=== PATIENT | female | born 1950 | race Caucasian/White ===

== ENCOUNTER 2020-06-04 11:21 | Outpatient (CLI) | payer MEDICARE, SELFPAY ==
--- NOTE | 2020-06-04 | ECG_ITS ---
Measurements Intervals [place] Rate: 85 P: 68 OK: 170 QRS: -60 QRSD: 129 T: 37 QT: 390 QTc: 465 Interpretive Statements SINUS RHYTHM RIGHT BUNDLE BRANCH BLOCK LEFT ANTERIOR FASCICULAR BLOCK ABNORMAL ECG Electronically Signed On 06-04-2020 12:58:55 CDT by Storm Doyle D.O.
[2020-06-04 12:23] LABS: Albumin Level 4.3 g/dL (3.5-5.1); Estimated Glomerular Filt Rate > 60
== END 2020-06-04 11:22 | disposition home or self-care (01) ==
PROVIDERS: PCP Nurse Practitioner Family; Visit Provider Orthopaedic Surgery
DX: Z01.818 Encounter for other preprocedural examination (principal); M17.11 Unilateral primary osteoarthritis, right knee; R94.31 Abnormal electrocardiogram [ECG] [EKG]
CPT/HCPCS: 36415; 82040; 82565; 93005

== ENCOUNTER 2020-06-12 13:58 | Outpatient (CLI) | payer MEDICARE, SELFPAY ==
[2020-06-12 15:05] LABS: Basophils Absolute Auto 0.1 K/mm3 (0.0-0.1); Basophils Percent Auto 0.5 % (0.2-1.2); Eosinophils Absolute Auto 0.1 K/mm3 (0-0.3); Eosinophils Percent Auto 1.5 % (0-4.4); Hematocrit 45.4 % (37.0-47.0); Hemoglobin 15.2 g/dL (12.0-15.0); Immature Granulocyte Absolute 0.02 K/mm3 (0.00-0.031); Immature Granulocyte Percent A 0.2 % (0-0.5); Lymphocytes Absolute Auto 1.91 K/mm3 (0.9-3.2); Mean Corpuscular HGB Conc 33.5 g/dl (32-36); Mean Corpuscular Hemoglobin 30.8 pg (26-34); Mean Corpuscular Volume 92.1 fl (80-100); Mean Platelet Volume 9.3 fl (7.4-10.4); Monocytes Absolute Auto 0.7 K/mm3 (0.1-0.6); Monocytes Percent Auto 6.8 % (2.6-8.5); Neutrophils Absolute Auto 6.8 K/mm3 (1.3-6.7); Platelet Count Result 301 k/mm3 (150-375); Red Blood Count 4.93 M/mm3 (4.2-5.4); Red Cell Distribution Width 12.7 % (11.5-14.5); White Blood Count 9.6 K/mm3 (4.5-10.0)
[2020-06-12 15:13] LABS: Hemoglobin A1C 5.6 % (<5.7); Urine Cotinine NEGATIVE
[2020-06-12 15:19] LABS: Glucose 116 mg/dL (65-105)
== END 2020-06-12 13:59 | disposition home or self-care (01) ==
PROVIDERS: PCP Nurse Practitioner Family; Visit Provider Orthopaedic Surgery
DX: M17.0 Bilateral primary osteoarthritis of knee (principal)
CPT/HCPCS: 36415; 80307; 82947; 83036; 85025; 87081

== ENCOUNTER 2020-07-14 01:28 | Outpatient (CLI) | payer MEDICARE, SELFPAY ==
[2020-07-14 18:01] LABS: SARS-CoV-2 RNA PCR Negative
== END 2020-07-14 01:29 | disposition home or self-care (01) ==
LOC: ANHCOVIDDT 01:29
PROVIDERS: PCP Nurse Practitioner Family; Visit Provider Orthopaedic Surgery
DX: Z01.812 Encounter for preprocedural laboratory examination (principal); Z20.828 Contact with and (suspected) exposure to other viral communicable diseases
CPT/HCPCS: 87635; C9803; U0003

== ENCOUNTER 2020-07-17 02:38 | Day surgery (SDC) | payer MEDICARE, SELFPAY ==
[2020-06-12 14:19] VITALS: BP 166/78; PULSE 88; RESP 20; TEMP 37.1; O2SAT 97; BMI 28.4
--- NOTE | 2020-07-16 13:56 | WPDANESEPPF ---
Anes - Initial Pre Proc Eval Procedure: Operation Date: 07/17/20 11:00 Proposed Procedures p Right Total Knee Arthroplasty - George Montoya MD Date/Time: 07/16/20 13:56 Surgeon: George oMntoya MD Pre Op Diagnosis: Right Knee OA Patient Data Age: 69 Gender: F Height: 1.6 m Weight: 72.9 kg Last Vital Signs Temp 37.1 C 06/12/20 14:19 Pulse 88 06/12/20 14:19 Resp 20 06/12/20 14:19 BP 166/78 H 06/12/20 14:19 Pulse Ox 97 06/12/20 14:19 Allergies Allergy/AdvReac Type Severity Reaction Status Date / Time Sulfa (Sulfonamide Allergy Severe Hives / Verified 07/17/20 09:03 Antibiotics) Red Face latex Allergy Mild RASH Verified 07/17/20 09:03 neomycin Allergy Unknown Skin Verified 07/17/20 09:03 Reaction Penicillins AdvReac Mild RAPPID Verified 07/17/20 09:03 HEART RATE Home Medications Medication Instructions Recorded Confirmed Type cranberry 450 mg PO TID 06/12/20 07/17/20 History multivitamin 1 tablet PO DAILY 06/12/20 07/17/20 History Patient hx anesthesia problems: none Family hx anesthesia problems: none PMFSH Past Medical History Medical History (Updated 07/16/20 @ 13:57 by Jose Corea MD) Hidradenitis Osteoarthritis of both knees Overweight (BMI 25.0-29.9) Primary osteoarthritis of right hip Vertigo Surgical History Surgical History History of hemorrhoidectomy (~1972) History of total left hip arthroplasty (~09/20/19) Presence of left artificial hip joint (~09/20/19) Social History Social History Smoking status: Never smoker Alcohol intake: never Substance use: never Living arrangements: with family Spiritual care concerns: No Anes - Eval Final PreProcedure Day of Procedure 07/16/20 13:56 Patient weight: overweight Heart: regular rate and rhythm Lungs: clear to auscultation and normal air movement Airway: Mallampati scale class II Neurological: alert and oriented Last oral intake: >/= 8 hours ASA classification: II Emergent: no Anesthetic plan: proceed Anesthesia type and monitoring: general LMA Informed Consent: The patient's anesthetic plan and its attendant risks and benefits were discussed with the patient/family/POA. Questions were solicited and answers provided to the satisfaction of the patient/family/POA.
[2020-07-17] VITALS (12 sets, daily range): BP systolic 108–148; BP diastolic 45–77; PULSE 80–103; RESP 12–18; TEMP 36.2–37.4; O2SAT 92–99
--- NOTE | ~2020-07-17 | XR_ITS ---
EXAMINATION: XR knee RT 2V DATE: 07/17/2020 13:22 INDICATION: Right total knee arthroplasty. Postop. TECHNIQUE: 2 views of right knee were obtained. COMPARISON: Right knee radiographs 09/03/2015 FINDINGS: There is a total right knee arthroplasty without patellar resurfacing. Tibia demonstrates 1 0 degrees posterior angulation with respect to tibial component. Patellar osteophytes are noted. Ther e is gas in the knee joint and soft tissues, consistent with recent surgery. IMPRESSION: 1. New total right knee arthroplasty. Reviewed, dictated and finalized at location A.
--- NOTE | 2020-07-17 07:18 | WPDHPUPDATE1 ---
History and Physical Update Update Date/Time: 07/17/20 07:18 History and Physical has been reviewed, including an updated exam of the patient. There are NO changes in the patient's condition. Risks, benefits, and alternatives have been discussed and questions answered. Patient agrees to proceed with procedure.
[2020-07-17] MEDS: ACETAMINOPHEN 500 MG TABLET 1000 MG PO (09:07)
[2020-07-17] MEDS: LACTATED RINGERS 1,000 ML 30 ML IV CONT ×2 (09:23→13:10)
[2020-07-17] MEDS: KETOROLAC 15 MG/ML VIAL (*BKC) IV PUSH (09:25)
--- NOTE | 2020-07-17 09:50 | WPDANESPNB ---
Anes - Peripheral Nerve Block Date/Time: 07/17/20 09:50 I have discussed with the patient/family/POA the placement of a peripheral nerve block for post-operative pain management, including associated risks, benefits, complications, and side effects. Alternative methods of post-operative analgesia were detailed. Questions were solicited and answers provided to the satisfaction of the patient/family/POA. Time-Out: A pre-procedural Time-Out was completed immediately before starting the procedure and confirmed: Patient Identification, Site, Procedure, Patient Position and the Availability of Requisite Equipment. Clinical Indications: Acute post-operative pain management requested by the operative surgeon. Nerve Block Insertion Note Anes-nerve block: adductor canal right Patient position: supine Skin prep: chlorhexidine Needle: 22 gauge, stimulating, insulated echogenic needle. Needle length: 80 mm Technique: ultrasound Technique comment: in plane Injectate: bupivacaine 0.5% with epi 5 mcg/ml (30cc) Observations: tolerated well Complications: none Procedure start time:: 1100 Procedure end time:: 1110
[2020-07-17] MEDS: TRANEXAMIC ACID 1,000MG/ISO100 1,000 MG/100 ML BAG 200 MG IVPB (10:15)
[2020-07-17] MEDS: ceFAZolin 2 GM/D5W 50 ML 2 GM/50 ML BAG IVPB (11:27)
[2020-07-17] MEDS: GENTAMICIN BONE CEMENT REFOBACIN 1 EACH TOPICAL (12:38)
--- NOTE | 2020-07-17 13:32 | P.OP_ITS ---
Procedure Note - Detailed Date of procedure: 07/17/20 Pre-op diagnosis: Right Knee OA Post-op diagnosis: same Procedure performed: Total knee arthroplasty, right. Description of procedure: Severe patellofemoral arthritis. Also medial comp artment disease. Standard resections were taken. Femur was rotated to 2? external rotation based on gap measurement. Bone quality was fair. Patella was extremely thin; it was not possible to resurface. Implants: [place] [employer] size 4 cemented femur, size 4 cemented low-profile tibia, 9mm CR polyethylene insert Anesthesia: GETA and regional (subsartorial nerve block) Surgeon: George Montoya MD Estimated blood loss (mL): 200 Drains: No Complications: None Condition: stable Disposition: PACU Findings: OPERATIVE DETAILS: The patient was given a nerve block preoperatively, and then brought to the operating room. A general anesthetic was administered. The leg was prepped and draped in the usual sterile fashion. The limb was elevated and the tourniquet inflated to 300 mmHg during initial exposure, and cementation. A longitudinal incision was created along the medial border of the patella and patellar tendon, and a minimally invasive optimized mid-vastus approach to the knee was performed. A moderate medial release was taken. The knee was then flexed. The osteophytes were carefully removed. The intramedullary guide was placed in the femoral canal. The distal femoral resection was then taken with the oscillating saw. The collateral ligaments were carefully protected. The tibia was carefully exposed. The jig was applied, and the proximal tibia was resected according to preoperative plan. The pain really anesthetic mixture was injected into the periarticular tissues. The knee was balanced in extension, and appropriate releases were taken where needed. The anterior cruciate ligament and meniscal remnants were removed. The posterior cruciate ligament was preserved. The patella was markedly thin. Less than 10 mm at the lateral facet. Osteophytes were removed and a partial lateral facetectomy was performed. The remaining patella had a nice contour articulation with femur. Minimal lateral release was performed. The femur was sized and rotation assessed using a combination of gap balancing, posterior referencing, and the AP axis. The 4 in 1 cutting block was used to finish the femoral cuts after equal gaps were assured. The lug holes were drilled. The osteophytes were carefully removed from the back of the knee. The knee was copiously irrigated with anti biotic solution periodically throughout the procedure. The spacer block was used to confirm equal flexion and extension gaps. Further releases were performed as needed. The tibia was sized and broached. The bony surfaces were prepared for cementing with pulsatile lavage. The real tibial component and femoral components were cemented into position. Excess cement was carefully removed. The polyethylene insert was placed. The [place] Pelletss device was used during the procedure. The wound was closed with #1 Vicryl suture, #2 Quill suture, [id number] suture, and 2-0 Strata-fix suture followed by Steri-Strips. A sterile bulky dressing was applied. Meticulous hemostasis was maintained throughout the procedure. There were no complications. The patient was extubated and brought to the recovery room in stable condition after the application of sterile dressing with Dat bandage.
--- NOTE | 2020-07-17 14:22 | SUR.PHASEI ---
PT AWAKE AND ALERT. TALKATIVE. STATES MILD CRAMPING PAIN TO CALF, TOLERABLE. MEETS DISCHARGE CRITERIA. 1 BAG OF BELONGINGS SENT WITH PT
[2020-07-17] MEDS: diphenhydrAMINE HCl INJ 50 MG/ML VIAL 25 MG IV PUSH (18:17)
[2020-07-17] MEDS: DOCUSATE SODIUM 100 MG CAPSULE PO (18:17)
[2020-07-18 00:15] VITALS: BP 118/54; PULSE 77; RESP 12; TEMP 37; O2SAT 96
[2020-07-18 05:07] LABS: Basophils Percent Auto 0.2 % (0.2-1.2); Eosinophils Percent Auto 0.1 % (0-4.4); Hematocrit 38.1 % (37.0-47.0); Hemoglobin 12.8 g/dL (12.0-15.0); Immature Granulocyte Absolute 0.05 K/mm3 (0.00-0.031); Immature Granulocyte Percent A 0.3 % (0-0.5); Lymphocytes Absolute Auto 1.61 K/mm3 (0.9-3.2); Lymphocytes Percent Auto 10.9 % (18.3-44.2); Mean Corpuscular HGB Conc 33.6 g/dl (32-36); Mean Corpuscular Hemoglobin 30.7 pg (26-34); Mean Corpuscular Volume 91.4 fl (80-100); Monocytes Absolute Auto 0.9 K/mm3 (0.1-0.6); Monocytes Percent Auto 6.2 % (2.6-8.5); Neutrophils Absolute Auto 12.1 K/mm3 (1.3-6.7); Neutrophils Percent Auto 82.3 % (45.5-73.1); Platelet Count Result 276 k/mm3 (150-375); Red Blood Count 4.17 M/mm3 (4.2-5.4); Red Cell Distribution Width 12.4 % (11.5-14.5); White Blood Count 14.8 K/mm3 (4.5-10.0)
[2020-07-18 06:00] VITALS: BP 125/62; PULSE 73; RESP 16; TEMP 36.6; O2SAT 97
[2020-07-18 06:02] LABS: Anion Gap 7 mmol/L (8-16); Blood Urea Nitrogen 11 mg/dL (7-17); Calcium 8.6 mg/dL (8.4-10.2); Carbon Dioxide 25 mmol/L (22-30); Chloride 104 mmol/L (98-107); Estimated CRCL calculation 61 ml/min; Estimated Glomerular Filt Rate > 60; Glucose 135 mg/dL (65-105); Potassium 4.4 mmol/L (3.4-5.0); Sodium 136 mmol/L (137-145)
[2020-07-18] MEDS: MULTIVITAMINS THERAPEUTIC TAB (*BKC) 1 TABLET PO (08:19)
[2020-07-18] MEDS: DOCUSATE SODIUM 100 MG CAPSULE PO (08:19)
--- NOTE | 2020-07-18 09:03 | WPDANESPN ---
Anes - Prog Note Post-Op Date/Time: 07/18/20 09:03 Cardiovascular status: normal Respiratory status: normal Airway patency: baseline Mental status: baseline Post-Op hydration status: normal Vital Signs: Last Vital Signs Temp 36.6 C 07/18/20 06:00 Pulse 73 07/18/20 06:00 Resp 16 07/18/20 06:00 BP 125/62 07/18/20 06:00 Pulse Ox 97 07/18/20 06:00 I/O: Intake & Output 07/17/20 07/18/20 07/18/20 23:59 07:59 15:59 Intake Total 490 500 Output Total 250 200 Balance 240 300 Laboratory Tests 07/18/20 04:55 07/18/20 04:55 07/17/20 07/18/20 07/18/20 09:20 04:55 04:55 WBC 14.8 H RBC 4.17 L Hgb 12.8 Hct 38.1 MCV 91.4 MCH 30.7 MCHC 33.6 RDW 12.4 Plt Count 276 MPV 9.0 Immature Gran % (Auto) 0.3 Neut % (Auto) 82.3 H Lymph % (Auto) 10.9 L [place] % (Auto) 6.2 Eos % (Auto) 0.1 Baso % (Auto) 0.2 Lymph # (Auto) 1.61 [place] # (Auto) 0.9 H Eos # (Auto) 0.0 Baso # (Auto) 0.0 Abs Immat Gran (auto) 0.05 H Absolute Neuts (auto) 12.1 H Absolute Nucleated RBC 0.0 Nucleated RBC % 0.0 Sodium 136 L Potassium 4.4 Chloride 104 Carbon Dioxide 25 Anion Gap 7 L BUN 11 Creatinine 0.70 Estim Creat Clear Calc 61 Estimated GFR > 60 Glucose 135 H Calcium 8.6 Blood Type A Positive Antibody Screen Negative Post-procedural complaints: none Patient Feedback: Patient satisfied with anesthetic care.
--- NOTE | 2020-07-18 11:48 | P.DS_ITS ---
DS: Admitting Diagnosis Admitting Diagnosis Admitting Diagnosis: Right Knee OA DS: Discharge Diagnosis Discharge Diagnosis (1) Status post total knee replacement, right: Code(s): Z96.651 - Presence of right artificial knee joint Status: Acute DS: Summary Hospital Course Reason for hospitalization: Total knee arthroplasty. Hospital Course: Tolerated surgery well. Progressed appropriately with therapy. Status at Discharge Functional status at discharge: uses cane/walker Overall status at discharge: patient is progressing back to baseline Time Spent with Patient Time attestation: Total time spent providing and/or coordinating discharge services: Exam Const: General: no acute distress Resp: Effort & Inspection: normal respiratory effort Skin: Other: Wound healing well. Mepilex dressing intact. No hematoma or drainage. Neuro: Motor exam (neuro): 5/5 motor strength present throughout Sensory Exam: normal sensation Psych: Mental Status: mental status grossly normal Speech and movement: Normal speech and movement present DS: Data Data Completed and Pending Labs on day of discharge: Labs from last 24 hours 07/18/20 07/18/20 04:55 04:55 WBC 14.8 H RBC 4.17 L Hgb 12.8 Hct 38.1 MCV 91.4 MCH 30.7 MCHC 33.6 RDW 12.4 Plt Count 276 MPV 9.0 Immature Gran % (Auto) 0.3 Neut % (Auto) 82.3 H Lymph % (Auto) 10.9 L [place] % (Auto) 6.2 Eos % (Auto) 0.1 Baso % (Auto) 0.2 Lymph # (Auto) 1.61 [place] # (Auto) 0.9 H Eos # (Auto) 0.0 Baso # (Auto) 0.0 Abs Immat Gran (auto) 0.05 H Absolute Neuts (auto) 12.1 H Absolute Nucleated RBC 0.0 Nucleated RBC % 0.0 Sodium 136 L Potassium 4.4 Chloride 104 Carbon Dioxide 25 Anion Gap 7 L BUN 11 Creatinine 0.70 Estim Creat Clear Calc 61 Estimated GFR > 60 Glucose 135 H Calcium 8.6 Discharge Plan Discharge Patient Disposition: Home, Self-Care Discharge Instructions: See instruction sheet. Patient Instructions: Pain Management (DC), Joint Replacement Surgery (DC), Knee Replacement (DC) Follow-up/Referrals: George Montoya MD [Physician] - Discharge Medications: New oxycodone-acetaminophen 5-325 mg tablet 1 - 2 tablet PO Q4-6H MDD 6 tablets PRN (Reason: pain) Qty: 30 RF: 0 Continued multivitamin Tablet 1 tablet PO DAILY RF: 0 cranberry 450 mg Tablet 450 mg PO TID RF: 0 Quality VTE Prophylaxis VTE prophylaxis: mechanical ordered (DWAINE edouard and Alize)
== END 2020-07-18 12:21 | disposition home or self-care (01) ==
LOC: ANHSURGERY 08:52 → ANH2MED 14:26
PROVIDERS: PCP Nurse Practitioner Family; Visit Provider Orthopaedic Surgery
PROC: (CPT 27447; principal; 2020-07-17 11:00)
DX: M17.0 Bilateral primary osteoarthritis of knee (principal); M25.569 Pain in unspecified knee
CPT/HCPCS: 27447; 36415; 73560; 80048; 85025; 86850; 86900; 86901; 97110; 97161; 97165; A9270; C1713; C1776; J0171; J0690; J1100; J1200; J1885; J2250; J2270; J2370; J2405; J2704; J2795; J3010; J7120

== ENCOUNTER 2020-07-24 00:51 | Emergency (ER) | payer MEDICARE, SELFPAY ==
[2020-07-24 01:00] VITALS: BP 147/43; PULSE 105; RESP 20; TEMP 36.8; O2SAT 98
[2020-07-24 03:01] VITALS: BP 142/74; PULSE 93; RESP 16; O2SAT 99
--- NOTE | 2020-07-24 04:12 | ED.SKABFB ---
HPI - Skin/Abscess/Foreign Bdy General Chief complaint: Skin/Abscess/Foreign Body Stated complaint: rash Time Seen by Provider: 07/24/20 04:12 Source: patient and family Mode of arrival: wheelchair Limitations: no limitations History of Present Illness HPI narrative: Patient is a 69-year-old female with a history of recent right knee replacement by Dr. Montoya who presents for evaluation of rash to her chest. She reports an itching type rash over the past 48 hours that she initially thought were mosquito bites, but have continued to itch. She states she is worried they are becoming infected. She denies any redness, purulent drainage from the sites, hives, involvement of her back, thorax or abdomen. No involvement to her arms or legs. No pain or tingling type sensation. Patient does not have any history of shingles type rash. Her knee incision site is clean and dry without drainage. She is post to have the bandage removed tomorrow. Has been does not have any other eruptions. She has not been taking any antibiotics following the surgery. She denies any new soaps, lotions or detergents. Related Data Home Medications Medication Instructions Recorded Confirmed cranberry 450 mg PO TID 06/12/20 07/17/20 multivitamin 1 tablet PO DAILY 06/12/20 07/17/20 ibuprofen [Advil] 200 mg PO Q6H PRN 07/24/20 Allergies Allergy/AdvReac Type Severity Reaction Status Date / Time Sulfa (Sulfonamide Allergy Severe Hives / Verified 07/17/20 09:03 Antibiotics) Red Face latex Allergy Mild RASH Verified 07/17/20 09:03 neomycin Allergy Unknown Skin Verified 07/17/20 09:03 Reaction sulfamethoxazole Allergy Hives Verified 07/24/20 00:53 [From Bactrim] trimethoprim [From Bactrim] Allergy Hives Verified 07/24/20 00:53 Penicillins AdvReac Mild RAPPID Verified 07/17/20 09:03 HEART RATE Review of Systems Review of Systems: Narrative: CONSTITUTIONAL: Denies fever CARDIOVASCULAR: Denies chest pain RESPIRATORY: Denies cough or dyspnea. GASTROINTESTINAL: Denies abdominal pain SKIN: Reports itching lesions scattered over chest MUSCULOSKELETAL: Denies back pain NEUROLOGIC: Denies headache PMFSH Past Medical History Medical History Hidradenitis Osteoarthritis of both knees Overweight (BMI 25.0-29.9) Primary osteoarthritis of right hip Vertigo Surgical History Surgical History History of hemorrhoidectomy (~1972) History of total left hip arthroplasty (~09/20/19) Presence of left artificial hip joint (~09/20/19) Status post total knee replacement, right Family History Family History Mother Diabetes mellitus Mother Diabetes mellitus Asthma Father Family history of emphysema Social History Social History Smoking status: Never smoker Alcohol intake: never Substance use: never Gender identity (if verbalized by the patient): Female Spiritual care concerns: No Exam Narrative: Exam Narrative: GENERAL: Awake, alert, conversant HEAD: Normocephalic, atraumatic. EYES: PERRLA and EOMI. ENT: Nares clear, no rhinorrhea or epistaxis. Mucous membranes moist. NECK: Supple. CHEST: No respiratory distress, breathing even and non labored HEART: Regular rate, sinus rhythm ABDOMEN:Non distended, non tender EXTREMITIES: Normal range of motion. No edema. SKIN: Warm, dry, several scattered papular lesions overlying anterior chest wall. No purulent drainage, no surrounding warmth, no streaking erythema. No urticaria. No vesicular changes or blisters. No ecchymoses or petechiae. NEURO:No focal deficits. Alert and oriented x3 Course Vital Signs Vital signs: Vital Signs Temperature 36.8 C 07/24/20 01:00 Pulse Rate 105 H 07/24/20 01:00 Respiratory Rate 07/24/20 01:00 Blood Pressure 147/43
[2020-07-24 04:39] VITALS: BP 136/69; PULSE 87; RESP 18; TEMP 36.7; O2SAT 100
== END 2020-07-24 04:42 | disposition home or self-care (01) ==
PROVIDERS: Emergency Provider Emergency Medicine; PCP Nurse Practitioner Family
DX: R21 Rash and other nonspecific skin eruption (principal); L98.1 Factitial dermatitis; M19.90 Unspecified osteoarthritis, unspecified site
CPT/HCPCS: 99283

== ENCOUNTER 2020-07-29 19:05 | Emergency (ER) | payer MEDICARE, SELFPAY ==
--- NOTE | ~2020-07-29 | CT_ITS ---
EXAMINATION: CTA chest PE protocol DATE: 07/29/2020 20:23 CDT INDICATION: Postoperative shortness of breath TECHNIQUE: Computed tomographic angiography (CTA) of the chest was performed with 100 mL Omnipaque-35 0 intravenous contrast. The dose-length product was 311.57 mGy-cm. Maximum intensity projection 3D-re constructions of the aorta and other arteries were constructed by the technologist on a separate work station. Automated exposure control and iterative reconstruction technique were employed. COMPARISON: Chest x-ray dated 12/02/2016. FINDINGS: Study is technically adequate without evidence for pulmonary embolism. No thoracic lymphade nopathy. No significant pleural or pericardial effusion. Size is upper normal. No evidence for aortic aneurysm or dissection. Gallbladder is distended with dilated common bile duct measuring 13 mm. Ther e is right middle lobe atelectasis. No endobronchial lesions. No focal airspace consolidation to sugg est pneumonia. No pneumothorax. No suspicious pulmonary nodules or masses. Thyroid gland is enlarged and contains multiple hypovascular masses, largest measuring 3.1 cm. IMPRESSION: 1. No acute cardiopulmonary disease. No evidence for pulmonary embolism. 2: Moderately distended gallbladder with dilated common bile duct measuring 13 mm. Cannot exclude dis tally obstructing stone. Correlate for clinical symptoms of cholecystitis. 3: Enlarged thyroid gland containing multiple masses, largest in the right lobe measuring 3.1 cm. Co rrelation with thyroid ultrasound recommended on a nonemergent basis. Reviewed, dictated and finalized at location A. IMPRESSION: 1. No acute cardiopulmonary disease. No evidence for pulmonary embolism. 2: Moderately distended gallbladder with dilated common bile duct measuring 13 mm. Cannot exclude distally obstructing stone. Correlate for clinical symptoms of cholecystitis. 3: Enlarged thyroid gland containing multiple masses, largest in the right lob e measuring 3.1 cm. Correlation with thyroid ultrasound recommended on a noneme rgent basis.
[2020-07-29 19:04] VITALS: BP 155/74; PULSE 102; RESP 20; TEMP 36.7; O2SAT 99
--- NOTE | 2020-07-29 19:11 | ECG_ITS ---
Measurements Intervals [place] Rate: 94 P: 60 OR: 161 QRS: -55 QRSD: 131 T: 24 QT: 365 QTc: 456 Interpretive Statements SINUS RHYTHM RIGHT BUNDLE BRANCH BLOCK LEFT ANTERIOR FASCICULAR BLOCK BASELINE ARTIFACT- II, III, AVR, AVF ABNORMAL ECG Electronically Signed On 07-30-2020 7:11:49 CDT by Storm Doyle D.O.
[2020-07-29 19:25] LABS: Basophils Absolute Auto 0.1 K/mm3 (0.0-0.1); Basophils Percent Auto 0.8 % (0.2-1.2); Eosinophils Absolute Auto 0.1 K/mm3 (0-0.3); Eosinophils Percent Auto 1.5 % (0-4.4); Hematocrit 38.9 % (37.0-47.0); Hemoglobin 12.9 g/dL (12.0-15.0); Immature Granulocyte Absolute 0.03 K/mm3 (0.00-0.031); Immature Granulocyte Percent A 0.3 % (0-0.5); Lymphocytes Absolute Auto 1.69 K/mm3 (0.9-3.2); Lymphocytes Percent Auto 18.1 % (18.3-44.2); Mean Corpuscular HGB Conc 33.2 g/dl (32-36); Mean Corpuscular Hemoglobin 30.8 pg (26-34); Mean Corpuscular Volume 92.8 fl (80-100); Mean Platelet Volume 9.1 fl (7.4-10.4); Monocytes Absolute Auto 0.6 K/mm3 (0.1-0.6); Neutrophils Absolute Auto 6.8 K/mm3 (1.3-6.7); Neutrophils Percent Auto 73.3 % (45.5-73.1); Platelet Count Result 421 k/mm3 (150-375); Red Blood Count 4.19 M/mm3 (4.2-5.4); Red Cell Distribution Width 13.5 % (11.5-14.5); White Blood Count 9.3 K/mm3 (4.5-10.0)
[2020-07-29 19:41] LABS: Anion Gap 8 mmol/L (8-16); Blood Urea Nitrogen 16 mg/dL (7-17); Calcium 9.1 mg/dL (8.4-10.2); Carbon Dioxide 22 mmol/L (22-30); Chloride 108 mmol/L (98-107); Estimated Glomerular Filt Rate > 60; Glucose 114 mg/dL (65-105); Potassium 4.3 mmol/L (3.4-5.0); Sodium 138 mmol/L (137-145)
--- NOTE | 2020-07-29 19:41 | ED.SOB ---
HPI - SOB/Dyspnea General Chief Complaint: Shortness of Breath/Dyspnea Stated Complaint: sob x2 weeks Time Seen by Provider: 07/29/20 19:08 Source: patient Mode of arrival: ambulatory Limitations: no limitations History of Present Illness HPI Narrative: This patient is a 69 year old female who is 2 weeks s/p right knee replacement who presents for sob. She has been having sob for approximately 2 days. She states it appears worse with laying down. Tonight she was having worsening sob while taking a shower so they came to the ER. She denies chest pain, fever or chills. She reports mild dry cough . She also denies leg swelling or calf pain. She has not previous history of heart or lung disease. MD elicited complaint: shortness of breath Related Data Home Medications Medication Instructions Recorded Confirmed cranberry 450 mg PO TID 06/12/20 07/29/20 ibuprofen [Advil] 200 mg PO Q6H PRN 07/24/20 07/29/20 Allergies Allergy/AdvReac Type Severity Reaction Status Date / Time Sulfa (Sulfonamide Allergy Severe Hives / Verified 07/29/20 19:13 Antibiotics) Red Face latex Allergy Mild RASH Verified 07/29/20 19:13 neomycin Allergy Unknown Skin Verified 07/29/20 19:13 Reaction sulfamethoxazole Allergy Hives Verified 07/29/20 19:13 [From Bactrim] trimethoprim [From Bactrim] Allergy Hives Verified 07/29/20 19:13 Penicillins AdvReac Mild RAPPID Verified 07/29/20 19:13 HEART RATE Review of Systems Review of Systems: All systems reviewed & are unremarkable except as noted in HPI and below Constitutional: Constitutional: Denies chills and Denies fever(s) Cardiovascular: Cardiovascular: Denies chest pain and Denies rapid heart rate Respiratory: Respiratory: Reports cough and Reports dyspnea Gastrointestinal: Gastrointestinal: Denies abdominal pain PMFSH Past Medical History Medical History Hidradenitis Osteoarthritis of both knees Overweight (BMI 25.0-29.9) Primary osteoarthritis of right hip Vertigo Surgical History Surgical History History of hemorrhoidectomy (~1972) History of total left hip arthroplasty (~09/20/19) Presence of left artificial hip joint (~09/20/19) Status post total knee replacement, right Social History Social History Smoking status: Never smoker Alcohol intake: never Substance use: never Gender identity (if verbalized by the patient): Female Spiritual care concerns: No Exam Const: General: no acute distress and alert Orientation/consciousness: patient oriented x3 HENMT: Head: normocephalic and atraumatic Face and sinus: face symmetric Throat: uvula midline Eyes: EOM: EOMs intact bilaterally Resp: Effort & Inspection: normal respiratory effort and not labored Auscultation: clear to auscultation bilaterally Cardio: Rate: regular rate Rhythm: regular rhythm and regular rhythm Heart sounds: no murmurs GI: GI Palp: Yes Soft to palpation, No Tenderness to palpation present (GI), No Guarding due to palpation present (GI) and No Rigid due to palpation Skin: Other: right thigh with ecchymosis , right knee incision covered with steri strips, no erythema or swelling, negative rome's sign Neuro: General: patient oriented x3 and moves all extremities Course Reevaluation(s) Reevaluation #1: I Discussed with patient CT no PE no effusion. I discussed gallbladder findings and she denies abdominal pain and she has no tenderness. She is also aware of enlarged thyroid Date: 07/29/20 Time: 21:02 Vital Signs Vital signs: Vital Signs Temperature 98.0 F 07/29/20 19:04 Pulse Rate 102 H 07/29/20 19:04 Respiratory Rate 20 07/29/20 19:04 Blood Pressure 155/74 H 07/29/20 19:04 Pulse Oximetry 99 07/29/20 19:04 Temperature 98.0 F 07/29/20 19:04 Pulse Rate 80 07/29/20 21:30
[2020-07-29 19:53] LABS: NT Pro B Type Natriuretic Pept 123 PG/ML (5-100); Troponin I < 0.012 ng/mL (0.000-0.034)
[2020-07-29 20:03] LABS: Partial Thromboplastin Time 25.6 SECONDS (22.3-36.8); Prothrombin Time 12.8 Seconds (11.1-14.7)
[2020-07-29 20:32] VITALS: BP 131/52; PULSE 85; RESP 20; O2SAT 97
[2020-07-29 21:30] VITALS: BP 127/94; PULSE 80; RESP 20; O2SAT 98
[2020-07-30 13:07] LABS: SARS-CoV-2 RNA PCR Negative
== END 2020-07-29 21:31 | disposition home or self-care (01) ==
PROVIDERS: Emergency Provider General Practice; PCP Nurse Practitioner Family
DX: R06.00 Dyspnea, unspecified (principal); Z20.828 Contact with and (suspected) exposure to other viral communicable diseases; M17.0 Bilateral primary osteoarthritis of knee; E66.3 Overweight; M16.11 Unilateral primary osteoarthritis, right hip; Z96.642 Presence of left artificial hip joint; Z96.651 Presence of right artificial knee joint; I45.2 Bifascicular block; E07.9 Disorder of thyroid, unspecified; R93.2 Abnormal findings on diagnostic imaging of liver and biliary tract
CPT/HCPCS: 36415; 71275; 80048; 83880; 84484; 85025; 85610; 85730; 87635; 93005; 99284; C9803; Q9967; U0003

== ENCOUNTER 2020-11-26 07:35 | Outpatient (CLI) | payer MEDICARE, SELFPAY ==
--- NOTE | ~2020-11-26 | US_ITS ---
EXAMINATION: US thyroid EXAM DATE: 11/26/2020 08:28 INDICATION: Thyroid nodule. TECHNIQUE: Multiple grayscale and Doppler images of the thyroid were obtained (by a technologist who performed the scan) and subsequently reviewed. Individual nodules and recommendations may be reporte d in accordance with TI-RADS system as designated by the 2017 ACR White Paper TI-RADS committee. Comp kvngson is made to prior examination from 02/27/2017, 01/23/2014. FINDINGS: The right thyroid lobe measures 5.6 x 4.2 x 3.6 cm, the left measuring 5.1 x 2.4 x 2.0 cm. This is mo derately enlarged. There are scattered thyroid nodules. Largest nodule is in the right thyroid lobe measuring 3.8 x 3.4 x 2.9 cm, solid (2 points), hypoechoi c (2 points), wider than tall, smooth margin, without echogenic foci, category TR4 for this nodule, u nchanged compared to prior study. The other bilateral thyroid nodules are 9 mm or less also unchanged . IMPRESSION: 1. Stable multinodular goiter, likely benign. Reviewed, dictated and finalized at location B. MAKER
== END 2020-11-26 07:36 | disposition home or self-care (01) ==
PROVIDERS: PCP Nurse Practitioner Family; Visit Provider Nurse Practitioner Family
DX: E04.2 Nontoxic multinodular goiter (principal)
CPT/HCPCS: 76536

== ENCOUNTER 2020-11-27 07:36 | Outpatient (CLI) | payer MEDICARE, SELFPAY ==
[2020-11-27 08:44] LABS: Basophils Absolute Auto 0.1 K/mm3 (0.0-0.1); Basophils Percent Auto 0.7 % (0.2-1.2); Eosinophils Absolute Auto 0.1 K/mm3 (0-0.3); Eosinophils Percent Auto 1.9 % (0-4.4); Hematocrit 46.3 % (37.0-47.0); Hemoglobin 15.2 g/dL (12.0-15.0); Immature Granulocyte Absolute 0.02 K/mm3 (0.00-0.031); Immature Granulocyte Percent A 0.3 % (0-0.5); Lymphocytes Absolute Auto 1.31 K/mm3 (0.9-3.2); Lymphocytes Percent Auto 18.1 % (18.3-44.2); Mean Corpuscular HGB Conc 32.8 g/dl (32-36); Mean Corpuscular Hemoglobin 30.3 pg (26-34); Mean Corpuscular Volume 92.4 fl (80-100); Mean Platelet Volume 8.9 fl (7.4-10.4); Monocytes Absolute Auto 0.5 K/mm3 (0.1-0.6); Monocytes Percent Auto 7.2 % (2.6-8.5); Neutrophils Absolute Auto 5.2 K/mm3 (1.3-6.7); Neutrophils Percent Auto 71.8 % (45.5-73.1); Platelet Count Result 244 k/mm3 (150-375); Red Blood Count 5.01 M/mm3 (4.2-5.4); Red Cell Distribution Width 12.5 % (11.5-14.5); White Blood Count 7.2 K/mm3 (4.5-10.0)
[2020-11-27 08:49] LABS: Add Urine Microscopic? YES; Appearance Urine Clear (Clear); Bilirubin Urine Negative (Negative); Blood Urine Negative (Negative); Color Urine Yellow (Yellow); Glucose Urine UA Negative (Negative); Ketones Urine Negative (Negative); Leukocyte Esterase Ur 2+ LEU/UL (NEGATIVE); Mucus Urine Rare /lpf; Nitrate Urine Negative (Negative); Protein Urine Negative (Negative); Specific Grav Ur 1.017 (1.001-1.035); Squamous Epithelial Cell Urine Moderate /hpf (Few); Urobilinogen Urine Negative mg/dL (<2.0); WBC Urine 0-3 /hpf (0-3)
[2020-11-27 09:04] LABS: Alanine Aminotransferase 17 U/L (4-35); Albumin Level 4.1 g/dL (3.5-5.1); Alkaline Phosphatase 98 U/L (38-126); Anion Gap 7 mmol/L (8-16); Aspartate Amino Transferase 23 U/L (14-36); Bilirubin,Total 0.5 mg/dL (0.2-1.3); Blood Urea Nitrogen 12 mg/dL (7-17); Calcium 9.2 mg/dL (8.4-10.2); Carbon Dioxide 29 mmol/L (22-30); Chloride 106 mmol/L (98-107); Cholesterol 187 mg/dL (0-200); Estimated Glomerular Filt Rate > 60; Glucose 97 mg/dL (65-105); HDL Direct 41 mg/dL; Potassium 4.6 mmol/L (3.4-5.0); Sodium 142 mmol/L (137-145); Triglycerides 113 mg/dL (<150)
[2020-11-27 09:15] LABS: LDL Cholesterol Direct 122 mg/dL
[2020-11-27 09:58] LABS: Thyroid Stimulating Hormone Reflex 0.982 uIU/mL (0.465-4.68)
[2020-11-29 20:24] LABS: Vitamin D 1,25 (OH)2 Total 59 pg/mL (18-72); Vitamin D2 1,25 (OH)2 <8 pg/mL; Vitamin D3 1,25 (OH)2 59 pg/mL
== END 2020-11-27 07:37 | disposition home or self-care (01) ==
PROVIDERS: PCP Nurse Practitioner Family; Visit Provider Registered Nurse
DX: E66.3 Overweight (principal); E55.9 Vitamin D deficiency, unspecified; E78.5 Hyperlipidemia, unspecified
CPT/HCPCS: 36415; 80053; 80061; 81001; 82652; 84443; 85025

== ENCOUNTER 2020-11-28 16:34 | Outpatient (CLI) | payer MEDICARE, SELFPAY ==
--- NOTE | ~2020-11-28 | MM_ITS ---
EXAMINATION: MM screening sven BI w ryan HISTORY: Screening mammogram, family history of breast cancer in her mother. TECHNIQUE: Craniocaudal and mediolateral oblique 3-D tomosynthesis images were obtained and synthetic 2-D images were generated. CAD analysis was submitted and interpreted. COMPARISON: 06/01/2019, 02/27/2017 BREAST PARENCHYMAL COMPOSITION: There are scattered areas of fibroglandular density. FINDINGS: Stable focal asymmetry is present in the upper outer quadrant of the left breast. There is no evidence of suspicious mass, calcification, or architectural distortion to suggest malignancy in e ither breast. There has been no suspicious interval change. IMPRESSION: 1. No mammographic evidence of malignancy. 2. Recommend routine screening mammography in one year. BI-RADS Category 2: Benign finding(s). Reviewed, dictated and finalized at location A. [employer]
== END 2020-11-28 16:35 | disposition home or self-care (01) ==
LOC: ANHIMG 16:39
PROVIDERS: PCP Nurse Practitioner Family; Visit Provider Registered Nurse
DX: Z12.31 Encounter for screening mammogram for malignant neoplasm of breast (principal)
CPT/HCPCS: 77063; 77067

== ENCOUNTER 2020-12-12 10:22 | Outpatient (CLI) | payer MEDICARE, SELFPAY ==
--- NOTE | 2020-12-19 12:32 | WPDHOLTEREM ---
Holter/Event Monitor Holter/Event Monitor Date of procedure: 12/12/20 Procedure Type: 48 hour holter monitor Indications: Pre-syncope Conclusion: 1. 48 hour holter monitor on 12/12/20. 2. Underlying rhythm is sinus rhythm. HR range 61-130 bpm; average HR 86 bpm. 3. There are 34 premature supraventricular complexes, 1 supraventricular couplet and 4 supraventricular bigeminy. No supraventricular tachycardia. 4. There are 309 premature ventricular complexes and 3 ventricular trigeminy. No ventricular tachycardia. 5. No sinoatrial or atrioventricular blocks. No significant pauses greater than 2 seconds. 6. Patient reports symptoms of chest tightness, deep breathing, lightheadedness, palpitations which demonstrate sinus rhythm, HR range 75-109 bpm.
== END 2020-12-12 10:23 | disposition home or self-care (01) ==
PROVIDERS: PCP Nurse Practitioner Family; Visit Provider Nurse Practitioner Family
DX: R55 Syncope and collapse (principal)
CPT/HCPCS: 93225; 93226

== ENCOUNTER 2020-12-21 10:11 | Outpatient (CLI) | payer MEDICARE, SELFPAY ==
--- NOTE | ~2020-12-21 | US_ITS ---
EXAMINATION: US soft tissue chest DATE: 12/21/2020 10:34 INDICATION: Right clavicular lump the chest after lifting a heavy item 2-2 months prior. TECHNIQUE: Multiple grayscale and Doppler ultrasound images of the right sternoclavicular region of bhumi smiley were obtained. The left sternoclavicular region was also imaged for comparison. COMPARISON: None FINDINGS: The palpable abnormality of concern appears to correspond to the margin of the medial head of the rig ht clavicle which extends to within 4 mm the skin surface. Similar findings are seen at the medial he ad of the left clavicle. No abnormal joint effusion at the right sternoclavicular joint. No abnormal masses or fluid collections identified. IMPRESSION: 1. Palpable abnormality of concern appears to correspond to the medial head of the right clavicle whi ch appears relatively symmetric to the medial head of the left clavicle. No abnormal masses or fluid collections identified. Reviewed, dictated and finalized at location A. RNEY IMPRESSION: 1. Palpable abnormality of concern appears to correspond to the medial head of the right clavicle which appears relatively symmetric to the medial head of the left clavicle. No abnormal masses or fluid collections identified.
== END 2020-12-21 10:12 | disposition home or self-care (01) ==
PROVIDERS: PCP Nurse Practitioner Family; Visit Provider Nurse Practitioner Family
DX: R22.2 Localized swelling, mass and lump, trunk (principal)
CPT/HCPCS: 76604

== ENCOUNTER 2022-04-08 13:52 | Outpatient (CLI) | payer MEDICARE, SELFPAY ==
--- NOTE | ~2022-04-08 | US_ITS ---
EXAMINATION: US thyroid DATE: 04/08/2022 16:13 INDICATION: Goiter. TECHNIQUE: Multiple ultrasound images of the thyroid were obtained. COMPARISON: Ultrasound 11/26/2020, 02/27/2017 FINDINGS: The right thyroid lobe measures 6.5 x 3.8 x 3.8 cm. The left thyroid lobe measures 5.7 x 2.5 x 2.0 c m. In the right thyroid lobe, there is a 4.5 cm predominantly solid, isoechoic, gadtd-owpa-thzx nodu le with ill-defined margin without echogenic foci (TI-RADS TR3), stable from 02/27/17. In the thyroid isthmus, there is a 12 mm solid, hypoechoic, mihqf-xyqq-pndw nodule with lobular margin without echog enic foci (TR4), stable from 02/27/17. In the left thyroid lobe, there is a 7 mm solid, hypoechoic, wi uta-kizp-yuog nodule with smooth margin and punctate echogenic foci (TR5), stable from 02/27/17. IMPRESSION: 1. Multinodular goiter, likely not clinically significant. No follow-up is needed. Reviewed, dictated and finalized at location E. IMPRESSION: 1. Multinodular goiter, likely not clinically significant. No follow-up is need ed.
== END 2022-04-08 13:53 | disposition home or self-care (01) ==
LOC: ANHIMG 13:54
PROVIDERS: PCP Nurse Practitioner Family; Visit Provider Nurse Practitioner Family
DX: E04.2 Nontoxic multinodular goiter (principal)
CPT/HCPCS: 76536